=== PATIENT | male | born 1965 | race Caucasian/White ===

== ENCOUNTER 2019-01-22 07:33 | Emergency (ER) | payer MEDICAID ==
[~2019-01-22] VITALS: Ht 177.8 cm; Wt 115.7 kg
[2019-01-22 07:35] VITALS: BP 182/125
--- NOTE | 2019-01-22 07:42 | NUR ---
Patient ambulated to bed 11.
--- NOTE | 2019-01-22 07:45 | NUR ---
53 YO M BIB SELF W/ C/O LEFT SIDED BLURRY VISION WHILE DRIVING THAT HIS SINCE RESOLVED. PT REPORTS THAT HIS VISION WENT FROM NORMAL TO LOOKING THROUGH A KALEIPESCOPE. PT STATES HE FEELS, "OFF". DENIES N/V. EQUAL AND SYMMETRICAL HAND STRENGTHS. +CMS. SKIN IS WARM AND DRY. NO FACIAL DROOP NOTED, SPEAKING IN FULL, COMPLETE AND APPROPRIATE SENTENCES. DENIES CP OR SOB. PT BP ELEVATED AT THIS TIME, HX HTN WAS TAKING HYDROCHLOROTHIZAIDE, AND OTHER BP MEDS BUT CANNOT AFFORD THEM. BED IS DOWN, LOCKED, BED RAIL X1, ERMD NOTIFIED HX HTN, HIGH CHOLESTROL, L KNEE JOINT REPLACEMENT, R SHATTERED HEEL S/P FALLING OFF A LADDER RX DENIES, STOPPED TAKING MEDS IN SEP/DEC BECAUSE HIS INSURANCE EXP
--- NOTE | 2019-01-22 08:00 | NUR ---
DR LOPEZ AT BEDSIDE
[2019-01-22] MEDS ORDERED: LORazepam 1 MG TAB PO ONE (08:10)
--- NOTE | 2019-01-22 08:17 | NUR ---
RD IN PATIENT ROOM
--- NOTE | 2019-01-22 08:19 | NUR ---
PT BEING TAKEN TO CT AT THIS TIME.
[2019-01-22] MEDS ORDERED: ONDANSETRON 4 MG/2 ML VIAL IVP STA (08:29)
[2019-01-22] MEDS ORDERED: cloNIDine 0.1 MG TAB PO ONE ×2 (08:30→15:30)
[2019-01-22] MEDS ORDERED: LABETALOL 100 MG/20 ML VIAL IVP ONE ×2 (08:30→15:30)
--- NOTE | 2019-01-22 08:32 | NUR ---
PT BACK FROM CT AT THIS TIME.
[2019-01-22 08:40] LABS: BASOPHILS # (AUTO) 0.1 K/uL (0.00-0.22); BASOPHILS % (AUTO) 1.9 % (0.0-2.0); EOSINOPHILS # (AUTO) 0.2 K/uL (0-0.4); EOSINOPHILS % (AUTO) 3.3 % (0.0-4.0); HEMATOCRIT 51.5 % (36-52); LYMPHOCYTES # (AUTO) 2.4 K/uL (2.0-11.5); LYMPHOCYTES % (AUTO) 34.8 % (20.5-51.1); MEAN CORPUSCULAR HEMOGLOBIN 29 pg (27-31); MEAN CORPUSCULAR HGB CONC 33 g/dL (33-37); MEAN CORPUSCULAR VOLUME 87.3 fL (80-94); MONOCYTES # (AUTO) 0.8 K/uL (0.8-1.0); MONOCYTES % (AUTO) 11.1 % (1.7-9.3); NEUTROPHILS # (AUTO) 3.4 K/uL (1.8-7.7); NEUTROPHILS % (AUTO) 48.9 % (42.2-75.2); PLATELET COUNT (AUTO) 236 K/uL (140-450); RED BLOOD CELL COUNT(AUTO) 5.89 MIL/uL (4.20-6.10); RED CELL DISTRIBUTION WIDTH 13.8 % (11.6-13.7); WHITE BLOOD COUNT (AUTO) 6.9 K/uL (4.8-10.8)
[2019-01-22 08:58] LABS: ANION GAP 9.1 (8-16); CHLORIDE 102 mmol/L (98-107); CREATININE 1.3 mg/dL (0.7-1.3); GFR ARICAN-AMERICAN 74 mL/min (>90); GLUCOSE 103 mg/dL (74-106); POTASSIUM 4.1 mmol/L (3.5-5.1); SODIUM SERUM 136 mmol/L (136-145); UREA NITROGEN, BLOOD 12 mg/dL (7-18)
[2019-01-22 09:02] LABS: APPEARANCE,URINE CLEAR (CLEAR); BILIRUBIN,URINE NEGATIVE (NEGATIVE); BLOOD, URINE TRACE-L (NEGATIVE); COLOR,URINE YELLOW (YELLOW); LEUKOCYTE ESTERASE ,URINE NEGATIVE (NEGATIVE); NITRITE, URINE NEGATIVE (NEGATIVE); UGLUCOSE NEGATIVE (NEGATIVE)
[2019-01-22 09:03] LABS: BARBITURATE, URINE NEG. ng/ml (NEG <=200); BENZODIAZEPINE, URINE NEG. ng/mL (NEG <=200); CANNABINOID, URINE NEG. ng/mL (NEG <=50); COCAINE, URINE NEG. ng/mL (NEG <=300); OPIATE, URINE NEG. ng/mL (NEG <=2000); PHENCYCLIDINE SCREEN,URINE NEG. ng/mL (NEG <=25)
[2019-01-22 09:04] LABS: ALBUMIN 4.2 g/dL (3.4-5.0); ASPARTATE AMINOTRANSFERASE 17 U/L (15-37)
[2019-01-22 09:11] LABS: RBC,URINE 3-10 (FEW) /HPF (0-5); WBC,URINE 0-5 (RARE) /HPF (0-5)
--- NOTE | 2019-01-22 09:25 | NUR ---
NEW VITALS HR 78 RR 18 02 94 BP 146/94
[2019-01-22] MEDS ORDERED: FUROSEMIDE 40 MG/4 ML VIAL IVP ONE (09:35)
--- NOTE | 2019-01-22 09:49 | NUR ---
PT RESTING IN BED, AROUSABLE TO NAME. 02 SAT ON MONITOR AT 93%, NO S/S OF DISTRESS NOTED. PT PLACED ON 4L/O2 VIA N/C
[2019-01-22 12:00] VITALS: BP 127/84
--- NOTE | 2019-01-22 12:06 | NUR ---
Patient discharged with v/s stable. Written and verbal after care instructions given and explained. Patient alert, oriented and verbalized understanding of instructions. Ambulatory with steady gait. All questions addressed prior to discharge. ID band removed. Patient advised to follow up with PMD. Rx of LISINOPRIL, HYDROCHLOROTHIAZIDE, CLONIDINE, HYDROCHLORIDE given. Patient educated on indication of medication including possible reaction and side effects. Opportunity to ask questions provided and answered.
[2019-01-22] MEDS ORDERED: ONDANSETRON 4 MG/2 ML VIAL IVP ONE (15:30)
== END 2019-01-22 12:06 | disposition home or self-care (01) ==
LOC: MED 07:33
DX: I10 Essential (primary) hypertension (principal); G45.9 Transient cerebral ischemic attack, unspecified; Z91.14 Patient's other noncompliance with medication regimen; E66.9 Obesity, unspecified; Z68.36 Body mass index [BMI] 36.0-36.9, adult
CPT/HCPCS: 36415; 70450; 71045; 80053; 80305; 81001; 82550; 84484; 85025; 93005; 96374; 96375; 99284; G0482; J1940; J2405; J3490; Q0092